=== PATIENT | male | born 1975 | race African-American/Black ===

== ENCOUNTER 2020-07-12 00:54 | Emergency (ER) | payer OTHER, MEDICAID ==
[~2020-07-12] VITALS: Ht 182.9 cm; Wt 91.0 kg
[2020-07-12 03:50] VITALS: BP 145/79
== END 2020-07-12 04:32 | disposition home or self-care (01) ==
LOC: ER 01:13
DX: K94.03 Colostomy malfunction (principal); I49.9 Cardiac arrhythmia, unspecified; I10 Essential (primary) hypertension; Z88.6 Allergy status to analgesic agent; Z88.8 Allergy status to other drugs, medicaments and biological substances
CPT/HCPCS: 93005; 99283